=== PATIENT | male | born 1945 | race Caucasian/White ===

== ENCOUNTER 2022-03-29 08:44 | Observation (INO) | payer MEDICARE, OTHER ==
[2022-03-29 09:12] LABS: AMPHETAMINES,URINE NEGATIVE (NEGATIVE); BARBITURATES,URINE NEGATIVE (NEGATIVE); BENZODIAZEPINE,URINE NEGATIVE (NEGATIVE); MDMA (ECSTASY), URINE NEGATIVE (NEGATIVE); METHADONE,URINE NEGATIVE (NEGATIVE); METHAMPHETAMINES,URINE NEGATIVE (NEGATIVE); OPIATES,URINE NEGATIVE (NEGATIVE); OXYCODONE,URINE NEGATIVE (NEGATIVE); PHENCYCLIDINE,URINE NEGATIVE (NEGATIVE); TCA,URINE NEGATIVE (NEGATIVE)
[2022-03-29 09:13] LABS: CHLORIDE,CL 96 mEq/L (98-106); SODIUM,NA 137 mEq/L (136-145)
[2022-03-29] MEDS ORDERED: Sodium Chloride 0.9% 1,000 ML IV ONE (09:14)
[2022-03-29 09:15] LABS: ESTIMATED GFR 89 mL/min (>=60)
[2022-03-29 10:17] LABS: O2 DELIVERY DEVICE NASAL CANNULA; O2 SATURATION ARTERIAL 98 % (95-98); PCO2 ARTERIAL 41 mm/Hg0 (35-45); PO2 ARTERIAL 100 mm/Hg (80-100)
[2022-03-29 10:18] LABS: BASE EXCESS ARTERIAL 0.6 (-2.0-3.0); BICARBONATE,ARTERIAL 25.4 mm/L (22.0-26.0); O2 FLOW RATE 2
[2022-03-29] MEDS ORDERED: Ondansetron 4 MG Tab.DIS PO PRN (11:24)
[2022-03-29] MEDS ORDERED: Potassium Chloride 10 MEQ Tab.ER PO STA (11:24)
[2022-03-29] MEDS ORDERED: Acetaminophen 325 MG Tab PO PRN (11:24)
[2022-03-29] MEDS ORDERED: Ondansetron 4 MG/2 ML SDV IV PRN (11:24)
[2022-03-29] MEDS: Aspirin 81 MG Tab.EC PO SCH (11:49)
[2022-03-29] MEDS: Multivitamin Tab PO SCH (11:49)
[2022-03-29] MEDS: Metoprolol Tartrate 50 MG Tab **PTOM PO SCH (11:52)
[2022-03-29] MEDS: METFORMIN HCL 500 MG PO SCH ×2 (11:53→17:37)
[2022-03-29] MEDS: GLIMEPIRIDE 4 MG PO SCH ×2 (11:53→17:37)
[2022-03-29] MEDS: HYDROCHLOROTHIAZIDE PO SCH (11:54)
[2022-03-29] MEDS: ENALAPRIL PO SCH (11:54)
[2022-03-29] MEDS: SITAGLIPTIN PHOSPHATE 50 MG PO SCH (15:17)
[2022-03-29] MEDS ORDERED: Enoxaparin 40 MG/0.4 ML Syringe SUBCUT SCH (20:00)
[2022-03-29] MEDS ORDERED: SIMVASTATIN 20 MG PO SCH (20:00)
[2022-03-30 08:42] LABS: HEMOGLOBIN A1C 11.8 % (4.8-5.6)
[2022-03-30] MEDS: SITAGLIPTIN PHOSPHATE 50 MG PO SCH (08:52)
[2022-03-30] MEDS: HYDROCHLOROTHIAZIDE PO SCH (08:54)
[2022-03-30] MEDS: ENALAPRIL PO SCH (08:54)
[2022-03-30] MEDS: GLIMEPIRIDE 4 MG PO SCH (08:56)
[2022-03-30] MEDS: METFORMIN HCL 500 MG PO SCH (08:57)
[2022-03-30] MEDS: Metoprolol Tartrate 50 MG Tab **PTOM PO SCH (08:57)
[2022-03-30] MEDS: Multivitamin Tab PO SCH (09:04)
[2022-03-30] MEDS: Aspirin 81 MG Tab.EC PO SCH (09:04)
== END 2022-03-30 11:23 | disposition home or self-care (01) ==
LOC: CC.ED 08:44 → CC.MS 11:08 → UNDOADMOB 11:08 → CC.MS 11:12
PROVIDERS: ADMIT Nurse Practitioner Family; ATTEND Nurse Practitioner Family
DX: R56.9 Unspecified convulsions (principal); R41.82 Altered mental status, unspecified; R73.9 Hyperglycemia, unspecified; E87.6 Hypokalemia; E83.42 Hypomagnesemia; Z79.899 Other long term (current) drug therapy; Z79.82 Long term (current) use of aspirin; Z79.84 Long term (current) use of oral hypoglycemic drugs; Z20.822 Contact with and (suspected) exposure to COVID-19
CPT/HCPCS: 36415; 36600; 70450; 71046; 80053; 80305-QW; 80307; 81001; 82803; 82947; 83036; 83605; 83735; 84443; 84484; 85025; 85610; 85730; 86140; 87804; 93005; 93010; 96360; 96361; 96372; 99223; 99239; 99285-25; A9270-GY; G0378; J1650; J7030; U0002